=== PATIENT | female | born 1940 | race Caucasian/White ===

== ENCOUNTER 2018-05-21 11:56 | Observation (INO) ==
[2018-05-21 13:14] LABS: Basophils % 0.2 % (0.1-2.0); Eosinophils % 0.5 % (0.1-12.0); Hematocrit 50.7 % (37.0-47.0); Hemoglobin 15.8 g/dL (12.2-16.2); Lymphocytes # 1.4 K/mm3 (0.7-4.5); Lymphocytes % 16.3 % (10-50); Mean Corpuscular HGB Conc 31.1 g/dL (31.8-35.4); Mean Corpuscular Hemoglobin 29.1 pg (27.0-31.2); Mean Corpuscular Volume 93.4 fl (81-99); Mean Platelet Volume 10.2 fl (7.4-10.4); Monocytes # 0.4 K/mm3 (0.1-1.0); Monocytes % 4.1 % (1.7-9.3); Neutrophils # 6.8 K/mm3 (1.8-7.8); Neutrophils % 78.9 % (37.0-80.0); Platelet Count 190 K/mm3 (142-424); Red Blood Count 5.43 M/mm3 (4.20-5.40); Red Cell Distribution Width 14.4 % (11.5-17.5); White Blood Count 8.6 K/mm3 (4.8-10.8)
[2018-05-21 13:32] LABS: Anion Gap 10.6 mEq/L (5-15); Potassium 3.6 mmoL/L (3.5-5.1); Thyroid Stimulating Hormone 3.19 uIU/ml (0.358-3.740)
--- NOTE | 2018-05-21 13:56 | Pharmacy Consult Notes ---
[facility] Pharmacy VTE Monitoring - Patient Demographics Admission date: 05/21/18 Report Date: 05/21/18 Time: 13:55 Allergies/Adverse Reactions: Patient Allergies Penicillins Allergy (Verified 05/21/18 12:43) Height: 1.65 m Weight: 64.127 kg - VTE Risk Labs: VTE Related Lab Results Hgb 15.8 g/dL (12.2-16.2) 05/21/18 12:42 Hct 50.7 % (37.0-47.0) H 05/21/18 12:42 Plt Count 190 K/mm3 (142-424) 05/21/18 12:42 BUN 12 mg/dL (7-18) 05/21/18 12:42 Creatinine 0.75 mg/dL (0.55-1.02) 05/21/18 12:42 Estimated Creat Clear 46 mL/min (50-200) 05/21/18 12:42 Was VTE Risk Assessment Performed: Yes VTE Score: 3 VTE Risk Level: Low Risk - Prophylaxis VTE Prophylaxis Ordered?: Yes Types of VTE Prophylaxis: Pharmacological Pharmacologic Type: Enoxaparin
[2018-05-21 14:16] LABS: Calcium 12.1 mg/dL (8.5-10.1)
[2018-05-22 07:11] LABS: Basophils % 0.2 % (0.1-2.0); Eosinophils % 0.3 % (0.1-12.0); Hematocrit 44.9 % (37.0-47.0); Lymphocytes # 1.9 K/mm3 (0.7-4.5); Lymphocytes % 25.8 % (10-50); Mean Corpuscular HGB Conc 31.7 g/dL (31.8-35.4); Mean Corpuscular Hemoglobin 29.2 pg (27.0-31.2); Mean Corpuscular Volume 92.3 fl (81-99); Mean Platelet Volume 9.6 fl (7.4-10.4); Monocytes # 0.3 K/mm3 (0.1-1.0); Monocytes % 4.5 % (1.7-9.3); Neutrophils % 69.2 % (37.0-80.0); Platelet Count 170 K/mm3 (142-424); Red Blood Count 4.86 M/mm3 (4.20-5.40); Red Cell Distribution Width 14.6 % (11.5-17.5); White Blood Count 7.2 K/mm3 (4.8-10.8)
[2018-05-22 07:18] LABS: Anion Gap 12.2 mEq/L (5-15); Potassium 3.2 mmoL/L (3.5-5.1)
[2018-05-22 07:25] LABS: Hemoglobin 14.3 g/dL (12.2-16.2)
--- NOTE | 2018-05-22 08:13 | Discharge Summary ---
General - General Admission date:: 05/21/18 Discharge date: 05/22/18 HPI HPI: 78-year-old female presented to the office on May 21 with tachycardia. She had been seen in the office 2 days earlier and identified as having atrial fibrillation with rapid ventricular response. Attempt was made to treat her as an outpatient and patient was given extended release metoprolol. Her heart rate remained as high as 160 with uncomfortable palpitations. Patient return to the office and heart rate was irregularly irregular, around 160 bpm. Patient denied chest pain, shortness of breath, lightheadedness or presyncope. Decision was made to admit the patient for treatment of her atrial fibrillation. Hospital Course Hospital Course: Patient was admitted to the hospital and placed on a Cardizem drip which brought her heart rate down to the 80s and 90s. By the evening of the she was transitioned to oral Cardizem with heart rate maintaining below 100 except for when the patient ambulated or became anxious. On the morning of the she was given an additional dose of Cardizem 180 mg along with her extended release metoprolol. Patient was discharged home later in the day. She was given Lovenox as an anticoagulant while hospitalized and will be transitioned to Eliquis at discharge. Patient will follow-up in my office in 2 days Objective Vital signs: Temp Pulse Resp BP Pulse Ox 98.1 F 91 H 15 136/95 H 92 L 05/21/18 19:57 05/22/18 06:00 05/22/18 04:00 05/22/18 06:00 05/22/18 06:00 Narrative: In no distress. HEENT exam is unremarkable. Neck examination was significant for jugular venous pulsations from her atrial fibrillation but once her rate became more controlled these resolved. Neck had no thyromegaly. Lungs are clear to auscultation. Heart has an irregularly irregular rate and rhythm. Patient had a normal neurologic exam Results Labs on day of discharge: Labs from last 24 hours 05/22/18 05/22/18 05/21/18 06:45 06:45 12:42 WBC 7.2 RBC 4.86 Hgb 14.3 Hct 44.9 MCV 92.3 MCH 29.2 MCHC 31.7 L RDW 14.6 Plt Count 170 MPV 9.6 Neut % (Auto) 69.2 Lymph % (Auto) 25.8 [place] % (Auto) 4.5 Eos % (Auto) 0.3 Baso % (Auto) 0.2 Neut # (Auto) 5.0 Lymph # (Auto) 1.9 [place] # (Auto) 0.3 Eos # (Auto) 0.0 Baso # (Auto) 0.0 Sodium 144 142 Potassium 3.2 L 3.6 Chloride 110 H 107 Carbon Dioxide 25 28 Anion Gap 12.2 10.6 BUN 11 12 Creatinine 0.63 0.75 Estimated Creat Clear 46 46 Estimated GFR 91 75 Est GFR ( Amer) 110 D 90 Glucose 115 H 117 H Calcium 11.0 H 12.1 H TSH 3.19 05/21/18 12:42 WBC 8.6 RBC 5.43 H Hgb 15.8 Hct 50.7 H MCV 93.4 MCH 29.1 MCHC 31.1 L RDW 14.4 Plt Count 190 MPV 10.2 Neut % (Auto) 78.9 Lymph % (Auto) 16.3 [place] % (Auto) 4.1 Eos % (Auto) 0.5 Baso % (Auto) 0.2 Neut # (Auto) 6.8 Lymph # (Auto) 1.4 [place] # (Auto) 0.4 Eos # (Auto) 0.0 Baso # (Auto) 0.0 Sodium Potassium Chloride Carbon Dioxide Anion Gap BUN Creatinine Estimated Creat Clear Estimated GFR Est GFR ( Amer) Glucose Calcium TSH DS: Diagnosis - Discharge Diagnosis (1) Atrial fibrillation with rapid ventricular response Status: Acute (2) Essential hypertension Status: Acute Discharge Plan - Patient Discharge Instructions ACTIVITY: Continue current activity DIET: continue same diet - Follow up Plan Disposition: Home, Self-Half-Way Medications: Home Medications Medication Instructions Recorded Confirmed Type Aspirin [Aspirin 81mg EC Tab] 81 mg PO DAILY 05/21/18 05/21/18 History Furosemide [Furosemide 20mg Tab] 20 mg PO DAILY 05/21/18 05/21/18 History Losartan Potassium 50 mg PO DAILY 05/21/18 05/21/18 History Metoprolol Eagle/Hydrochlorothiaz 1 each PO DAILY 05/21/18 05/21/18 History [Metoprolol ER-Hctz 25-12.5 mg] Pravastatin Sodium [Pravachol 20mg 20 mg PO DAILY 05/21/18 05/21/18 History Tablet] Apixaban [Eliquis] 5 mg PO BID #60 tab 05/22/18 Rx dilTIAZem HCl [Cardizem ER 240mg 240 mg PO DAILY #30 cap.er.24h 05/22/18 Rx Capsule] Prescriptions/Medication Reconciliation: New Apixaban [Eliquis] 5 mg PO BID #60 tab dilTIAZem HCl [Cardizem ER 240mg Capsule] 240 mg PO DAILY #30 cap.er.24h Continue Pravastatin Sodium [Pravachol 20mg Tablet] 20 mg PO DAILY Metoprolol Eagle/Hydrochlorothiaz [Metoprolol ER-Hctz 25-12.5 mg] 1 each PO DAILY Aspirin [Aspirin 81mg EC Tab] 81 mg PO DAILY Furosemide [Furosemide 20mg Tab] 20 mg PO DAILY Losartan Potassium 50 mg PO DAILY
== END 2018-05-22 10:06 | disposition home or self-care (01) ==
LOC: 2ND → INTOOBSV 12:05 → OBSVTOIN 12:05
PROVIDERS: ADMIT Family Medicine; ATTEND Family Medicine

== ENCOUNTER → 2018-06-07 09:24 | Outpatient (CLI) | payer MEDICARE, SELFPAY ==
--- NOTE | 2018-06-07 09:29 | CA_ITS ---
PROCEDURE: 2-D M-mode and color Doppler study INDICATIONS FOR THE TEST: Chest pain COPD Heart Murmur Tobacco Smoking Palpitations+ Fatigue Syncope Edema Hypertension+Diabetes Mellitus Rheumatic Fever SOB [place] Obesity Hyperlipidemia Family History HD Additional History AFIB PATIENT INFORMATION HEIGHT: 65 WEIGHT:140 GENDER: Female B/P:136/95 2-D/M-MODE INTERPRETATION: 2-D MEASUREMENTS OBSERVED VALUES IN CMS Right Ventricular Dimension (RVDd) 2.9 Interventricular Septum (Thickness)(IVsd) 0.8 Left Ventricular Internal Dimensions(LVIDd) 5.1 Left Ventricular Posterior Wall (Thickness)(LVPWd) 0.8 Aortic Root 3.6 Aortic Cusp Separation 2.3 Left Atrial Dimensions (LAD) 5.4 2D 1. Left atrium is moderately enlarged, left ventricle is normal size, there is mild qualitative concentric left ventricular hypertrophy, visually estimated ejection fraction approximately 50% with no regional wall motion abnormality. 2. The right atrium is moderately enlarged, right ventricle is mildly enlarged with normal contractility. 3. The aortic valve is minimally thickened and fibrosed. 4. The mitral and tricuspid valve leaflets are minimally thickened. 5. The pulmonic valve is poorly visualized. 6. No significant pericardial effusion noted. DOPPLER INTERROGATION: Doppler interrogation of the aortic, mitral and tricuspid valvular presence of mild mitral and moderate tricuspid regurgitation, calculated right ventricular systolic pressure is 48 mmHg consistent with moderate pulmonary hypertension, diastolic parameters are inconclusive. CONCLUSION: 1. Moderate biatrial enlargement, normal left ventricular size, mild concentric left ventricular hypertrophy, visually estimated ejection fraction 50% with no regional wall motion abnormality. Diastolic parameters are inconclusive. 2. Mildly enlarged right ventricle with normal contractility. 3. Mild mitral and moderate tricuspid regurgitation, calculated right ventricular systolic pressure is 48 mmHg consistent with moderate pulmonary hypertension. 4. No significant pericardial effusion noted.
== END ==
PROVIDERS: PCP Family Medicine; Visit Provider Family Medicine
DX: I48.1 Persistent atrial fibrillation (principal)
CPT/HCPCS: 93306

== ENCOUNTER → 2018-07-21 13:05 | Outpatient (CLI) | payer MEDICARE, SELFPAY | PROVIDERS: PCP Family Medicine; Visit Provider Family Medicine | DX: I48.91 Unspecified atrial fibrillation (principal) | CPT/HCPCS: 93225; 93226 ==

== ENCOUNTER → 2020-02-15 14:04 | Outpatient (CLI) | payer MEDICARE, SELFPAY ==
--- NOTE | 2020-02-15 14:10 | XR_ITS ---
PROCEDURE: XR CHEST 2V CLINICAL HISTORY: PERSISTENT ATRIAL FIBRILLATION COMPARISON: No exams were available for comparison FINDINGS: There is cardiomegaly without failure. Slight increased density is present in the right lung base posteriorly. This may only be related overlying soft tissue attenuation. Cannot exclude infiltrate in the right lung base. There is kyphosis of the upper thoracic spine. No acute bony abnormalities. IMPRESSION: Cardiomegaly with possible right lower lobe infiltrate. Dictated by: Refugio Cook MD 02/15/2020 15:59 Refugio Cook MD in [place] 02/15/2020 15:59
== END ==
PROVIDERS: PCP Family Medicine; Visit Provider Family Medicine
DX: I48.11 Longstanding persistent atrial fibrillation (principal)
CPT/HCPCS: 71046

== ENCOUNTER → 2021-06-04 10:05 | Outpatient (CLI) | payer MEDICARE, SELFPAY ==
--- NOTE | 2021-06-04 10:09 | CT_ITS ---
FINAL REPORT CLINICAL HISTORY: NAUSEA,ABD PAIN FINDINGS: CT ABDOMEN WITHOUT CONTRAST Axial images through the abdomen were performed without contrast. This study was performed with techniques to keep radiation doses as low as reasonably achievable, (ALARA). Individualized dose reduction techniques using automated exposure control or adjustment of mA and/or kV according to the patient's size were employed. ABDOMEN: There is scarring in the lung bases. The gallbladder is absent. The liver is unremarkable. The spleen is normal. There is fatty infiltration of the pancreas. No adrenal mass is identified. The aorta is normal in caliber. There is no significant free fluid or adenopathy. There are a multitude of bilateral nonobstructing renal stones measuring up to 5 mm. There is no hydronephrosis. On the most inferior image is haziness in the fat of the mid pelvis of unclear significance. There is 30? of thoracolumbar scoliosis convex to the left. IMPRESSION: Nonobstructing bilateral renal stones. Incomplete visualization of a sinus in the mid pelvis. Cannot exclude an inflammatory pelvic process. Consider full abdomen and pelvis CT. 30? of thoracolumbar scoliosis. Reviewed, Interpreted and Dictated by James Anna MD Transcribed by Munir Douglas Authenticated by James Anna MD on 06/04/2021 12:14:16 PM [facility]
== END ==
PROVIDERS: PCP Family Medicine; Visit Provider Family Medicine
DX: R10.84 Generalized abdominal pain (principal); R11.0 Nausea
CPT/HCPCS: 74150

== ENCOUNTER → 2021-06-08 10:44 | Outpatient (CLI) | payer MEDICARE, SELFPAY ==
[2021-06-08 12:09] LABS: Blood Urea Nitrogen 10 mg/dl (7-17); Estimated Glomerular Filt Rate 80 ml/min (>60); GFR (African American) 97 ML/MIN (>60)
== END ==
PROVIDERS: Visit Provider Family Medicine
DX: R10.84 Generalized abdominal pain (principal); R11.0 Nausea
CPT/HCPCS: 36415; 82565; 84520

== ENCOUNTER → 2021-06-12 09:26 | Outpatient (CLI) | payer MEDICARE, SELFPAY ==
--- NOTE | 2021-06-12 09:32 | CT_ITS ---
FINAL REPORT TECHNIQUE: Axial CT images of the abdomen and pelvis were obtained before and after the administration of IV contrast. This study was performed with techniques to keep radiation doses as low as reasonably achievable (ALARA). Individualized dose reduction techniques using automated exposure control or adjustment of mA and/or kV according to the patient''s size were employed. CLINICAL HISTORY: NAUSEA,ABD PAIN COMPARISON: And abdomen CT dated June 04, 2021 FINDINGS: Abdomen: There is mild bibasilar scarring. There is atelectasis or scarring in the lateral left lung base. There is cardiomegaly. There is heterogeneous contrast enhancement of the liver that is favored to represent a normal variant. The gallbladder surgically absent.. The spleen is unremarkable. No adrenal masses present. The pancreas has an unremarkable appearance. The kidneys enhance normally. The aorta is normal in caliber. There is no free fluid or adenopathy. No mass or abnormal fluid collection is seen. Precontrast images demonstrate several nonobstructing bilateral renal stones with the largest in the left kidney measuring 5 mm.. Pelvis: The appendix is not well visualized. The urinary bladder is unremarkable. There is widespread colonic diverticulosis. There is foci of extraluminal air in the mid pelvis and inflammatory fat stranding. This is felt to represent acute sigmoid diverticulitis with micro perforation. There is a small amount of pelvic free fluid which is likely reactive. There is no evidence of mass or adenopathy. There is no evidence of bowel obstruction. There are widespread lucencies in the visualized bony skeleton which may represent metastases, myeloma or possibly osteoporosis. IMPRESSION: Findings are consistent with acute sigmoid diverticulitis with microperforation. Widespread lucencies in the visualized bony skeleton, may represent metastases, myeloma or possibly osteoporosis. Bilateral nonobstructing renal stones. Reviewed, Interpreted and Dictated by Behzad Wagoner III, MD Transcribed by Marlene David Authenticated by Behzad Wagoner III, MD on 06/12/2021 10:47:38 AM [facility]
== END ==
PROVIDERS: PCP Family Medicine; Visit Provider Family Medicine
DX: R10.84 Generalized abdominal pain (principal); R11.0 Nausea
CPT/HCPCS: 74178; Q9967

== ENCOUNTER → 2021-06-26 08:31 | Outpatient (CLI) | payer MEDICARE, SELFPAY ==
--- NOTE | 2021-06-26 08:42 | NM_ITS ---
FINAL REPORT CLINICAL HISTORY: BONE LESION FINDINGS: EXISTING RELEVANT IMAGING STUDIES: CT abdomen and pelvis dated June 12, 2021 TECHNIQUE: The patient was injected with 26.9 mCi of technetium 99-[id number]. 3 hour delayed images were obtained. FINDINGS: There is thoracic scoliosis convex to the right. There is thoracolumbar scoliosis convex to the left. There is normal distribution of radiopharmaceutical. IMPRESSION: No findings to indicate metastatic bone disease. Bony structures on the recent CT head abnormal appearing small lucencies. Bone scan may be normal in the setting of myeloma. Correlation with lab values and and possible bone marrow biopsy may be of value. Reviewed, Interpreted and Dictated by James Anna MD Transcribed by Munir Douglas Authenticated by James Anna MD on 06/26/2021 02:18:14 PM [facility]
== END ==
PROVIDERS: PCP Family Medicine; Visit Provider Family Medicine
DX: M89.9 Disorder of bone, unspecified (principal); D48.0 Neoplasm of uncertain behavior of bone and articular cartilage
CPT/HCPCS: 78306; A9503

== ENCOUNTER 2023-10-21 17:47 | Emergency (ER) | payer MEDICARE, SELFPAY ==
[2023-10-21 17:46] VITALS: BP 131/67; PULSE 101; O2SAT 92
[2023-10-21 17:47] VITALS: BP 137/67; PULSE 126; RESP 22; TEMP 39.4; O2SAT 91; BMI 27.4
--- NOTE | 2023-10-21 17:51 | ECG_ITS ---
APPROVED REPORT Exam: Resting ECG HR:117 bpm ECG Measurements Heart Rate 117 AXES QRSd 94 QRS 64 QT 225 T 267 QTc 294 Conclusion ATRIAL FIBRILLATION WITH RAPID VENTRICULAR RESPONSE WITH ABERRANT CONDUCTION OR VENTRICULAR PREMATURE COMPLEXES POSSIBLE RIGHT VENTRICULAR CONDUCTION DELAY [RSR (QR) IN V1/V2] NONSPECIFIC ST & T-WAVE ABNORMALITY ABNORMAL ECG Electronically signed by : ZACH BALDWIN, 10/21/2023 22:22:10
--- NOTE | 2023-10-21 17:56 | CT_ITS ---
PROCEDURE INFORMATION: Exam: CT Head Without Contrast Exam date and time: 10/21/2023 6:18 PM Age: 83 years old Clinical indication: Altered mental status/memory loss; Additional info: AMS TECHNIQUE: Imaging protocol: Computed tomography of the head without contrast. Radiation optimization: All CT scans at this facility use at least one of these dose optimization techniques: automated exposure control; mA and/or kV adjustment per patient size (includes targeted exams where dose is matched to clinical indication); or iterative reconstruction. COMPARISON: NM BONE SCAN WHOLE BODY 06/26/2021 12:33 PM FINDINGS: Brain: There is moderate diffuse cerebral volume loss present. Multiple subcortical and deep hypoattenuating white matter foci are present, likely related to small vessel senescent changes and can also be seen with prior infectious / inflammatory insult, or prior traumatic events. No hyperattenuating foci are identified to suggest acute intracranial hemorrhage. Cerebral ventricles: No ventriculomegaly. Paranasal sinuses: Visualized sinuses are unremarkable. No fluid levels. Mastoid air cells: Visualized mastoid air cells are well aerated. Bones: Unremarkable. No acute fracture. Soft tissues: Unremarkable. IMPRESSION: 1. Multiple subcortical and deep hypoattenuating white matter foci are present, likely related to small vessel senescent changes and can also be seen with prior infectious / inflammatory insult, or prior traumatic events. 2. No hyperattenuating foci are identified to suggest acute intracranial hemorrhage.
[2023-10-21 18:01] VITALS: BP 123/68; PULSE 107; RESP 21; O2SAT 91
--- NOTE | 2023-10-21 18:09 | XR_ITS ---
PROCEDURE INFORMATION: Exam: XR Chest Exam date and time: 10/21/2023 6:18 PM Age: 83 years old Clinical indication: Fever; Additional info: Fever, AMS TECHNIQUE: Imaging protocol: Radiologic exam of the chest. Views: 1 view. COMPARISON: CR XR CHEST 2V 02/15/2020 2:17 PM FINDINGS: Lungs: Left basilar opacities partially silhouette the diaphragm are favored to represent combination of atelectasis/pleural effusion/consolidation. Pleural spaces: See Lungs finding. Heart/Mediastinum: Cardiomegaly unchanged from prior exam Bones/joints: Unremarkable. IMPRESSION: Left basilar opacities partially silhouette the diaphragm are favored to represent combination of atelectasis/pleural effusion/consolidation.
[2023-10-21] MEDS: ACETAMINOPHEN 1,000MG/100ML VIAL 1000 MG IV (18:10)
--- NOTE | 2023-10-21 18:12 | PC.NURSE ---
RT notified of VBG order
--- NOTE | 2023-10-21 18:12 | PC.NURSE ---
Pt gone to RAD via stretcher
--- NOTE | 2023-10-21 18:16 | ED_ITS ---
Discharge Plan Disposition Patient Disposition: Xfer Short-Term Hosp Prescriptions Prescriptions: No Action pravastatin 20 MG tablet 20 mg PO DAILY metoprolol rollins-hydrochlorothiaz 1 EACH tablet extended release 24 hr 1 ea PO DAILY losartan 50 MG Tablet 50 mg PO DAILY aspirin 81 MG Tablet.Dr 81 mg PO DAILY furosemide 20 MG tablet 20 mg PO NEEDED PRN (Reason: Fuild ) diltiazem HCl 240 MG capsule,extended release 24hr 240 mg PO DAILY ferrous sulfate [FeroSul] 325 mg (65 mg iron) tablet 325 mg PO DAILY Patient Comments: TAKE ONE TABLET BY MOUTH DAILY WITH BREAKFAST apixaban 5 MG tablet 5 mg PO BID Referrals Follow up/Referrals: Petey Hernandez MD [Primary Care Provider] - See instructions Clinical Impressions Clinical Impression: Atrial fibrillation with rapid ventricular response, Sepsis, Thrombocytopenia, Acute hypoxemic respiratory failure, Hypomagnesemia, Hypokalemia, Acute UTI, Ureterolithiasis Discharge ED Provider: Maria Eugenia Martell General Adult HPI General Chief complaint: Weakness Stated complaint: WEAKNES Time Seen by Provider: 10/21/23 17:54 Mode of Arrival: EMS Source of Information: Patient and EMS Limitations: Altered Mental Status Description of Symptoms (Recalled from ER Triage Doc. by RN): EMS reports pt's son called due to pt being weak and decreased PO intake for 2-3 days. Pt has no complaints at this time but is febrile and in Afib w/ RVR on monitor. Pt is only alert to name and place but states the year is 1923. History of Present Illness HPI narrative: This patient is an 83-year-old female with history of atrial fibrillation reportedly on diltiazem and Eliquis, CHF on Lasix, hypertension, and hyperlipidemia presenting to the emergency department for evaluation with concern for generalized weakness and decreased oral intake for the last 2 to 3 days. Patient has generally been unwell. According to EMS, they arrived on scene and the patient was noted to be tachycardic with atrial fibrillation with a ventricular rate in the 120s to 130s. They note she was otherwise stable. Patient denies any specific concerns or complaints at this time, but history is limited given history of dementia. She denies any pain anywhere. She is alert, conversational, and very pleasant. She does arrive febrile, tachycardic, and borderline hypoxic with O2 saturation in the low 90s. Related Data Home Medications Medication Instructions Recorded Confirmed aspirin 81 mg tablet,delayed 81 mg PO DAILY heart health 05/21/18 05/21/18 release furosemide 20 mg tablet 20 mg PO NEEDED PRN Fuild 05/21/18 10/21/23 losartan 50 mg tablet 50 mg PO DAILY htn 05/21/18 05/21/18 metoprolol succ 25 1 ea PO DAILY htn 05/21/18 10/21/23 mg-hydrochlorothiazide 12.5 mg tablet,ext.rel 24 hr pravastatin 20 mg tablet 20 mg PO DAILY High cholesterol 05/21/18 10/21/23 apixaban 5 mg tablet 5 mg PO BID Afib 10/21/23 10/21/23 diltiazem HCl 240 mg 240 mg PO DAILY Afib 10/21/23 10/21/23 capsule,extended release 24 hr ferrous sulfate 325 mg (65 mg 325 mg PO DAILY 10/21/23 10/21/23 iron) tablet (FeroSul) Allergies Allergy/AdvReac Type Severity Reaction Status Date / Time Penicillins Allergy Verified 05/21/18 12:43 [facility] Disclaimer: The information contained in this section may have been updated after the patient was seen, as this information can be updated by other users. Social History Smoking Status: Unknown if ever smoked alcohol intake: never current occupational status: retired Travel in the last 8 weeks: None ROS Obtained: Yes All systems reviewed & no additional complaints except as documented Physical Exam General General appearance: alert and in no apparent distress Head Head exam: atraumatic and normocephalic Eye Eye exam: Present normal appearance, PERRL and EOMI ENT ENT exam: Present normal exam, normal oropharynx, mucous membranes moist and normal external ear exam Neck Neck exam: Present normal inspection, full ROM and trachea midline; Absent tenderness Chest Chest inspection: Present normal inspection and symmetric chest wall rise; Absent tenderness Respiratory Respiratory exam: Present normal lung sounds bilaterally; Absent respiratory distress, wheezes, stridor or accessory muscle use Cardiovascular Cardiovascular exam: Present tachycardia and irregular rhythm Abdominal Exam Abdominal exam: Present soft; Absent distention, tenderness or guarding Extremities Exam Extremities exam: Present full ROM, normal capillary refill and edema (1+ bilateral lower extremity edema); Absent tenderness Back Exam Back exam: Present normal inspection and full ROM; Absent tenderness Neurological Exam Neurological exam: Present alert, CN II-XII intact, normal gait and other (Generally weak without focal deficit); Absent oriented X3 or motor sensory deficit Psychiatric Psychiatric exam: Present normal affect and normal mood Skin Skin exam: Present warm and dry Medical Decision Making Medical Records Medical records reviewed: Yes I reviewed the patient's medical records. Dontae Inquiry Pt receiving controlled substance: No Vital Signs: 10/21/23 17:46 10/21/23 17:47 10/21/23 18:01 Temperature 103.0 F H Temperature Source Oral Pulse Rate 101 H 107 H Pulse Rate [Apical] 126 H Respiratory Rate 22 21 Blood Pressure 131/67 123/68 Blood Pressure [Right Arm] 137/67 Blood Pressure Mean [Right Arm] 90 Blood Pressure Source [Right Arm] Automatic Cuff Blood Pressure Position [Right Arm] Supine 02 Sat by Pulse Oximetry 92 L 91 L 91 L Oxygen Delivery Method Nasal Cannula Nasal Cannula Nasal Cannula Oxygen Flow Rate (LPM) 2 2 2 10/21/23 18:30 Temperature Temperature Source Pulse Rate 100 H Pulse Rate [Apical] Respiratory Rate 27 H Blood Pressure 141/70 H Blood Pressure [Right Arm] Blood Pressure Mean [Right Arm] Blood Pressure Source [Right Arm] Blood Pressure Position [Right Arm] 02 Sat by Pulse Oximetry 94 L Oxygen Delivery Method Nasal Cannula Oxygen Flow Rate (LPM) 2 Lab Data Lab results reviewed: Yes I reviewed the patient's lab results. Lab Results 10/21/23 17:48: WBC 8.8, RBC 5.22, Hgb 12.9, Hct 42.8, MCV 82.0, MCH 24.7 L, M CHC 30.1 L, RDW 21.6 H, Plt Count 23 L*, MPV 8.4, Neut % (Auto) 95.1 H, Lymph % (Auto) 3.5 L, [place] % (Auto) 0.7 L, Eos % (Auto) 0.3, Baso % (Auto) 0.4, Neut # (Auto) 8.3 H, Lymph # (Auto) 0.3 L, [place] # (Auto) 0.1, Eos # (Auto) 0.0, Baso # (Auto) 0.0, Total Counted 100, Neutrophils % (Manual) 92 H, Band Neutrophils % 6.0, Lymphocytes % (Manual) 2 L, Platelet Estimate Marked decrease, Hypochromasia 1+, Anisocytosis 2+, Microcytosis 1+, Target Cells 1+, Tear Drop Cells 1+, Acanthocytes (Spur) 1+, PT 13.0 H, INR 1.22 H, APTT 26.8, D-Dimer 1.57 H, Sodium 137, Potassium 3.0 L, Chloride 98, Carbon Dioxide 23, Anion Gap 19.0 H , BUN 18 H, Creatinine 0.90, Estimated Creat Clear 48, Estimated GFR 60, Est GFR ( Amer) 72, Glucose 153 H, Calcium 10.9 H, Magnesium 1.3 L, Total Bilirubin 1.2, AST 45 H, ALT 43, Alkaline Phosphatase 213 H, Troponin I < 0.01, C-Reactive Protein 184.5 H, NT-Pro-B Natriuret Pep 3800 H, Total Protein 6.9, Albumin 3.7, Globulin 3.2, Albumin/Globulin Ratio 1.2, Procalcitonin 0.240, TSH 1.08, Thyroxine (T4) 8.3 10/21/23 18:12: VBG pH 7.42 H, VBG pCO2 34.5 L, VBG pO2 69.8 H, VBG HCO3 21.9 L, VBG Total CO2 22.9 L, VBG O2 Saturation 94.4 H, VBG Base Excess -2.6 L, VBG Lactic Acid 6.7 H 10/21/23 18:13: SARS-CoV-2 (PCR) Not detected, Influenza A Untype (PCR) Not detected, Influenza Type B (PCR) Not detected 10/21/23 19:33: Urine Color Yellow, Urine Appearance Clear, Urine pH 6.5, Ur Specific [place] 1.020, Urine Protein 2+, Urine Glucose (UA) Negative, Urine Ketones Negative, Urine Blood 3+, Urine Nitrate Negative, Urine Bilirubin Negative, Urine Urobilinogen 1.0, Ur Leukocyte Esterase 3+ A, Urine RBC Tntc, Urine WBC 20-50, Ur Squamous Epith Cells 3-5, Urine Bacteria 1+ 10/21/23 20:51: Troponin I 0.07 H 10/21/23 17:48 10/21/23 17:48 Orders (Tests/Meds): ED MEDICATIONS Generic Name Dose Route Start Last Admin Trade Name Freq PRN Reason Stop Dose Admin Lactated Ringer's 1,000 mls @ 25 mls/hr 10/21/23 20:45 10/21/23 20:48 Lactated Ringer's 1000 Ml Bag IV 11/20/23 20:44 25 mls/hr .Q25H LILA Administration Miscellaneous 1 each 10/21/23 18:30 10/21/23 18:57 Vancomycin Consult Request NOTAPPLIC 11/20/23 18:29 1 each CONSULT PHARMACY LILA Administration Discontinued Medications Generic Name Dose Route Start Last Admin Trade Name Omar PRN Reason Stop Dose Admin Acetaminophen 1,000 mg 10/21/23 18:07 10/21/23 18:10 Acetaminophen 1,000mg/100ml Vial IV 10/21/23 18:08 1,000 mg ONCE ONE Administration Lactated Ringer's 1,000 mls @ 999 mls/hr 10/21/23 18:21 10/21/23 18:24 Lactated Ringer's 1000 Ml Bag IV 10/21/23 19:21 999 mls/hr .Q1H1M ONE Administration Cefepime HCl 1 gm/ Sodium 50 mls @ 100 mls/hr 10/21/23 18:21 10/21/23 19:37 Chloride IV 10/21/23 18:22 100 mls/hr ONCE ONE Administration Metronidazole 500 mg in 100 mls @ 100 mls/hr 10/21/23 18:21 10/21/23 18:24 Flagyl 500mg/100ml Ivpb IV 10/21/23 19:20 100 mls/hr ONCE ONE Administration Vancomycin/PEG/NADA/Lysine/Water 1.25 gm in 250 mls @ 125 mls/hr 10/21/23 18:30 10/21/23 19:37 Vancomycin 1.25gm/250ml (Peg) Premix IV 10/21/23 20:29 125 mls/hr ONCE ONE Administration Potassium Chloride/Water 100 mls @ 50 mls/hr 10/21/23 18:46 10/21/23 20:47 Potassium Chloride 20meq/100ml Ivpb IV 10/21/23 20:45 50 mls/hr ONCE ONE Administration Magnesium Sulfate 2 gm in 50 mls @ 50 mls/hr 10/21/23 18:46 10/21/23 20:48 Magnesium Sulfate 2gm/50ml Premix IV 10/21/23 19:45 50 mls/hr ONCE ONE Administration Iopamidol 70 ml 10/21/23 20:11 10/21/23 20:13 Iopamidol-370 (76%);100ml Bottle IV 10/21/23 20:12 70 ml ONCE ONE Administration Sodium Chloride 10 ml 10/21/23 20:11 10/21/23 20:13 Sodium Chloride 0.9% 10ml Syr (Rad Only) IV 10/21/23 20:12 10 ml ONCE ONE Administration Sodium Chloride 50 ml 10/21/23 20:11 10/21/23 20:13 0.9 % Sodium Chloride 50 Ml Vial IV 10/21/23 20:12 50 ml ONCE ONE Administration ORDERS Category Date Time Status CT abdomen pelvis w con Stat Cat Scan 10/21/23 19:[address] angio chest PE protocol Stat Cat Scan 10/21/23 19:[address] head/brain wo con Stat Cat Scan 10/21/23 17:56 Completed XR chest portable Stat Exams 10/21/23 18:09 Completed Activated Partial Thrombo Time Stat Lab 10/21/23 17:48 Completed C-Reactive Protein Stat Lab 10/21/23 17:48 Completed Complete Blood Count Auto Diff Stat Lab 10/21/23 17:48 Completed Comprehensive Metabolic Panel Stat Lab 10/21/23 17:48 Completed D-Dimer Stat Lab 10/21/23 17:48 Completed Lactic Acid Stat Lab 10/21/23 21:43 Ordered Magnesium Stat Lab 10/21/23 17:48 Completed NT Pro Brain Natriuretic Pep. Stat Lab 10/21/23 17:48 Completed Procalcitonin Stat Lab 10/21/23 17:48 Completed Prothrombin Time INR Stat Lab 10/21/23 17:48 Completed Rapid PCR Covid and Flu A/B Stat Lab 10/21/23 18:13 Completed T4 (Thyroxine) Stat Lab 10/21/23 17:48 Completed Thyroid Stimulating Hormone Stat Lab 10/21/23 17:48 Completed Troponin I Q3H Lab 10/21/23 20:51 Completed Troponin I Q3H Lab 10/22/23 00:00 Ordered Troponin I Stat Lab 10/21/23 17:48 Completed Urinalysis and Microscopic Stat Lab 10/21/23 19:33 Completed Blood Culture Stat Micro 10/21/23 17:55 Received Urine Culture Stat Micro 10/21/23 19:33 Received VBG [Venous Blood Gas] Stat RT 10/21/23 18:12 Completed ECG Data Tracing #1: I reviewed this ECG and interpreted as documented below: Atrial fibrillation with a ventricular rate of [address] changes concerning for ischemia. ECG initial impression date: 10/21/23 ECG initial impression time: 17:52 Medical Decision Narrative: In summary, this patient is a 83-year-old female presenting to the Emergency Department for evaluation of generalized weakness and poor appetite for 2 to 3 days. She arrives febrile, tachycardic, in atrial fibrillation with RVR. She also has borderline hypoxic with lower extremity edema. Differential diagnoses considered include but are not limited to sepsis, pneumonia, urinary tract infection, viral syndrome, dehydration, CHF exacerbation. Ruling out the most morbid conditions drove assessment. It should be noted patient's history includes atrial fibrillation and CHF which are not at goal therapy. This complicates all aspects of care by increasing patient's risk for morbidity. I reviewed patient's past medical records and noted previous PCP evaluations for persistent atrial fibrillation. She has a prior admission from 2018 for atrial fibrillation with RVR.. On exam, the patient is febrile, tachycardic, borderline hypoxic, and has lower extremity edema. She is alert, conversational, and at her baseline with her history of dementia. She denies any concerns or complaints. Workup included broad lab evaluation including infectious, cardiac, and metabolic workup. She was given a 1 L bolus of IV fluids, but she was not given a sepsis bolus of IV fluids because she has signs of volume overload on exam with lower extremity edema. She has CHF for which she is chronically on Lasix. I reviewed last echocardiogram and noted in 2019 her EF was approximately 50%. Given that she meets SIRS criteria, she was also started on broad-spectrum antibiotics including IV vancomycin, cefepime, and Flagyl. She was also given IV Tylenol. CT scan of the head, chest, abdomen, and pelvis as well as chest x-ray were obtained in addition to lab evaluation. I independently interpreted CT scan prior to the radiologist read and noted a right obstructive ureteral stone (17mm) as well as evidence of volume overload with pulmonary edema. This again supports not given the patient a full sepsis bolus despite her lactic acid that is significantly elevated. Please see their read for final interpretation. Labs were obtained that demonstrated elevated lactic acid of greater than 6 as well as elevated BNP. She also has hypomagnesemia and hypokalemia for which IV replacement ordered.. On reassessment, patient had good improvement in her heart rate after administration of IV fluids, antibiotics, magnesium, and potassium. She went from 120s to 130s to rate in the low 100s. She has not yet had her nighttime diltiazem or metoprolol which she takes at home. I considered giving these, however I feel that her heart rate is likely compensatory in the setting of severe sepsis with an obstructive right ureteral stone. I ultimately feel that she would benefit from transfer to higher level of care for further evaluation and management. Conversations were initiated with [facility] per the family's request. In the meantime, second troponin became elevated at 0.07, which I feel is likely related to her atrial fibrillation and sepsis. No acute STEMI. I had an interactive discussion with Dr. Reis at [facility] via their transfer center who advised that he would be happy to take care of the patient there. I had an interactive discussion with Dr. Gould the hospitalist who advised second lactic acid but they would be happy to care for the patient there. Transfer center advised that they would call back with a bed. Ultimately, the patient was transported there in stable condition for further evaluation and management by EMS. Critical Care Critical Care Time Critical Care Time: Yes Attestation: On 10/21/23, the high probability of a clinically significant, sudden or life threatening deterioration of the following system(s) required my full and direct attention, intervention and personal management. The time I documented below is in addition to time spent performing reported procedures but includes the following listed in this critical care notation. Total Time Total Critical Care Time: 45
[2023-10-21 18:17] LABS: VBG Base Excess -2.6 mmol/L (-2.4-2.3); VBG HCO3 21.9 mmol/L (23-30); VBG Oxygen Saturation 94.4 % (50-70); VBG PCO2 34.5 mmol/L (35-51); VBG PH 7.42 mmol/L (7.31-7.41); VBG PO2 69.8 mmol/L (28-40); VBG Total CO2 22.9 mmol/L (23-27)
[2023-10-21 18:20] LABS: Activated Partial Thrombo Time 26.8 seconds (22.8-30.6); INR 1.22 (0.9-1.1)
[2023-10-21 18:20] LABS: Coronavirus 19, PCR Not Detected (NotDetected); Influenza A, PCR Not Detected (NotDetected); Influenza B, PCR Not Detected (NotDetected)
--- NOTE | 2023-10-21 18:22 | PC.NURSE ---
RESP CALLED FOR CRITICAL LACTIC OF 6.7 MD NOTIFIED
[2023-10-21 18:24] LABS: Lactate Venous 6.7 mmol/L (0.4-2.0)
[2023-10-21] MEDS: LACTATED RINGERS 1000ML 1,000 ML 999 ML IV (18:24)
[2023-10-21] MEDS: METRONIDAZ/SOD CHL 500 MG/100 ML PIGGYBACK 100 MG IV (18:24)
--- NOTE | 2023-10-21 18:25 | PC.NURSE ---
SEPSIS BOLUS NOT GIVEN DUE TO HX OF CHF AND B LEG SWELLING PER DR BALDWIN
[2023-10-21 18:30] VITALS: BP 141/70; PULSE 100; RESP 27; O2SAT 94
[2023-10-21 18:39] LABS: Alanine Aminotransferase 43 U/L (12-78); Albumin Level 3.7 g/dl (3.5-5.0); Albumin/Globulin Ratio 1.2 (1.1-1.8); Alkaline Phosphatase 213 U/L (38-126); Aspartate Amino Transferase 45 U/L (14-36); Bilirubin,Total 1.2 mg/dl (0.2-1.3); Blood Urea Nitrogen 18 mg/dl (7-17); Calcium 10.9 mg/dl (8.4-10.2); Carbon Dioxide 23 mmol/L (22.0-30.0); Chloride 98 mmol/L (98-107); Creatinine Clearance Estimated 48 mL/min (50-200); Estimated Glomerular Filt Rate 60 ml/min (>60); GFR (African American) 72 ML/MIN (>60); Globulin 3.2 g/dL (1.3-3.2); Glucose 153 mg/dl (74-100); Magnesium 1.3 mg/dl (1.6-2.3); Sodium 137 mmol/L (136-145); Total Protein,Serum 6.9 g/dl (6.3-8.2)
[2023-10-21 18:54] LABS: Basophils % 0.4 % (0.1-2.0); Eosinophils % 0.3 % (0.1-12.0); Hematocrit 42.8 % (37.0-47.0); Hemoglobin 12.9 g/dL (12.2-16.2); Lymphocytes # 0.3 K/mm3 (0.7-4.5); Lymphocytes % 3.5 % (10-50); Mean Corpuscular HGB Conc 30.1 g/dL (31.8-35.4); Mean Corpuscular Hemoglobin 24.7 pg (27.0-31.2); Mean Platelet Volume 8.4 fl (7.4-10.4); Monocytes # 0.1 K/mm3 (0.1-1.0); Monocytes % 0.7 % (1.7-9.3); Neutrophils # 8.3 K/mm3 (1.8-7.8); Neutrophils % 95.1 % (37.0-80.0); Red Blood Count 5.22 M/mm3 (4.20-5.40); Red Cell Distribution Width 21.6 % (11.5-17.5); White Blood Count 8.8 K/mm3 (4.8-10.8)
[2023-10-21] MEDS: VANCOMYCIN CONSULT REQUEST 1 EACH NOTAPPLIC (18:57)
--- NOTE | 2023-10-21 18:57 | PC.NURSE ---
Soila in LAB called to report a platelet count of 23. Repeated and confirmed. Dr. Martell notified
[2023-10-21 19:01] LABS: D-Dimer 1.57 ug/mL (0.0-0.5)
[2023-10-21 19:02] LABS: C-Reactive Protein 184.5 mg/L (0-4)
[2023-10-21 19:05] LABS: Platelet Count 23 K/mm3 (142-424)
[2023-10-21 19:06] LABS: MANUAL DIFFERENTIAL MANUAL DIFFERENTIAL (MANUAL DIFF)
--- NOTE | 2023-10-21 19:09 | CT_ITS ---
PROCEDURE INFORMATION: Exam: CT Abdomen And Pelvis With Contrast Exam date and time: 10/21/2023 7:56 PM Age: 83 years old Clinical indication: Other: Sepsis; Additional info: Sepsis unknown origin TECHNIQUE: Imaging protocol: Computed tomography of the abdomen and pelvis with contrast. Radiation optimization: All CT scans at this facility use at least one of these dose optimization techniques: automated exposure control; mA and/or kV adjustment per patient size (includes targeted exams where dose is matched to clinical indication); or iterative reconstruction. Contrast material: ISOVUE; Contrast volume: 70 ml; Contrast route: IV; COMPARISON: CT ABDOMEN PELVIS WO/W CON 06/12/2021 10:00 AM FINDINGS: Lungs: Dependent bilateral lung base opacities favor atelectasis. Heart: Cardiomegaly unchanged from prior exam. Liver: Mild periportal edema likely related to fluid resuscitation. Gallbladder and bile ducts: There are surgical clips within the gallbladder fossa. Moderate hepatic steatosis with sparing adjacent to the falciform ligament and gallbladder fossa resulting in hyperattenuation. Pancreas: Normal. No ductal dilation. Spleen: Normal. No splenomegaly. Adrenal glands: Normal. No mass. Kidneys and ureters: Obstructive ureterolith at the right ureteropelvic junction measuring 17 mm in diameter resulting in moderate right hydronephrosis, and stranding of the right ureter, which could represent early infectious uropathy. Nonobstructive left sided kidney stone measures 9 mm. Multiple Bosniak 1 renal cystic lesions defined as homogeneous and fluid density (-9 to 20 HU), no septations or calcifications, having randolph smooth and thin. Largest cyst measures 20 mm. No follow-up recommended. Stomach and bowel: Diverticula are scattered throughout the colon without inflammatory changes. Appendix: No evidence of appendicitis. Intraperitoneal space: Unremarkable. No free air. No significant fluid collection. Vasculature: Mild calcific atherosclerotic disease is scattered throughout the abdominal aorta without aneurysmal dilatation. Lymph nodes: Unremarkable. No enlarged lymph nodes. Urinary bladder: Navarro catheter terminates within the bladder. Reproductive: Unremarkable as visualized. Bones/joints: Diffuse sclerotic appearance of the osseous structures which could be related to metabolic process versus neoplastic process. Soft tissues: Normal. IMPRESSION: Obstructive ureterolith at the right ureteropelvic junction measuring 17 mm in diameter resulting in moderate right hydronephrosis, and stranding of the right ureter, which could represent early infectious uropathy.
--- NOTE | 2023-10-21 19:09 | CT_ITS ---
PROCEDURE INFORMATION: Exam: CTA Chest With Contrast Exam date and time: 10/21/2023 7:56 PM Age: 83 years old Clinical indication: Tachypnea; Additional info: Resp failure, elevated d dimer TECHNIQUE: Imaging protocol: Computed tomographic angiography of the chest with contrast. Exam focused on the arteries. 3D rendering (Not supervised by radiologist): MIP and/or 3D reconstructed images were created by the technologist. Radiation optimization: All CT scans at this facility use at least one of these dose optimization techniques: automated exposure control; mA and/or kV adjustment per patient size (includes targeted exams where dose is matched to clinical indication); or iterative reconstruction. Contrast material: ISOVUE; Contrast volume: 70 ml; Contrast route: INTRAVENOUS (IV); COMPARISON: CR XR CHEST PORTABLE 10/21/2023 6:18 PM FINDINGS: Pulmonary arteries: No CT angiography evidence of pulmonary embolism. Aorta: Unremarkable. No aortic aneurysm. No aortic dissection. Lungs: Dependent bilateral lung base opacities favor atelectasis. Prominent interstitial markings of the lung bases with centrilobular airspace opacities suggest mild pulmonary edema. Pleural spaces: Low volume left pulmonary effusion. Heart: Cardiomegaly unchanged from prior exam. Lymph nodes: Unremarkable. No enlarged lymph nodes. Kidneys and ureters: Moderate right hydronephrosis involving superior pole of the right kidney. Right renal Bosniak 1 cystic lesion that is homogeneous and fluid density (-9-20 HU), no septations or calcifications, having randolph smooth and thin. Measurement is 22 mm. No follow-up recommended. Bones/joints: Moderate loss of intervertebral disc space with degenerative changes at thoracic spine with exaggerated kyphotic curvature Soft tissues: Unremarkable. IMPRESSION: 1. No CT angiography evidence of pulmonary embolism. 2. Prominent interstitial markings of the lung bases with centrilobular airspace opacities suggest mild pulmonary edema. 3. Moderate right hydronephrosis involving superior pole of the right kidney. COMMENTS: Consistent with the [employer]'s Incidental Findings Committee white paper (J Am Hailee Radiol 2018): Any incidental renal lesion less than 1 cm or classified as too small to characterize, or any incidental cystic renal lesion characterized as simple-appearing, is likely benign. No follow-up imaging is recommended for these lesions per consensus recommendations based on imaging criteria.
[2023-10-21 19:13] LABS: Lymphocytes % 2 % (10-50); NT Pro Brain Natriuretic Pep. 3800 pg/mL (0-450); Neutrophils % 92 % (42-76); Total Cells Counted 100
[2023-10-21 19:14] LABS: Anisocytosis 2+; Hypochromasia 1+; Microcytosis 1+; Platelet Estimate Marked Decrease; Tear Drop Cells 1+; Troponin I < 0.01 ng/ml (0.00-0.034)
[2023-10-21 19:15] LABS: Acanthocytes 1+; Target Cells 1+
[2023-10-21 19:21] LABS: T4 (Thyroxine) 8.3 ug/dl (5.53-11.0)
[2023-10-21 19:35] LABS: Thyroid Stimulating Hormone 1.08 uIU/mL (0.465-4.68)
[2023-10-21 19:36] LABS: Microscopic, Urine URINE MICROSCOPIC (MICROSCOPIC)
[2023-10-21] MEDS: VANCOMYCIN/WATER FOR INJ (PEG) 1.25 GM/250 ML PIGGYBACK IV (19:37)
[2023-10-21] MEDS: CEFEPIME HCL 1 GM in 0.9 % SODIUM CHLORIDE 50 ML IV (19:37)
[2023-10-21 19:51] LABS: Appearance,Urine CLEAR (Clear); Bilirubin,Urine Negative (Negative); Blood, Urine 3+ (Negative); Color,Urine YELLOW (Yellow); Glucose,Urine (UA) Negative (Negative); Ketones,Urine Negative (Negative); Leukocyte Esterase,Urine 3+ (Negative); Nitrate,Urine Negative (Negative); PH,Urine 6.5 (5.0-8.5); Protein,Urine 2+ (Negative)
[2023-10-21 20:02] LABS: Bacteria,Urine 1+ /lpf; RBC,Urine TNTC #/hpf (0-3); WBC,Urine 20-50 #/hpf (0-3)
[2023-10-21] MEDS: 0.9 % SODIUM CHLORIDE 50 ML VIAL IV (20:13)
[2023-10-21] MEDS: IOPAMIDOL-370 (76%);100ML BOTTLE 70 ML IV (20:13)
[2023-10-21] MEDS: SODIUM CHLORIDE 0.9% 10ML SYR (RAD ONLY) 10 ML IV (20:13)
[2023-10-21] MEDS: KCl 20mEq/100ml 100 ML 50 MEQ IV (20:47)
[2023-10-21] MEDS: MAGNESIUM SULFATE IN WATER 2 GM/50 ML PIGGYBACK IV (20:48)
[2023-10-21] MEDS: LACTATED RINGERS 1000ML 1,000 ML 25 ML IV (20:48)
--- NOTE | 2023-10-21 20:56 | PC.NURSE ---
Called [facility] about possible transfer of the pt per request of Dr Martell. Waiting for a return call. CR
[2023-10-21 21:23] LABS: Troponin I 0.07 ng/ml (0.00-0.034)
[2023-10-21 22:00] LABS: Lactic Acid 1.4 mmol/L (0.7-2.1)
[2023-10-21 22:05] LABS: Reflex Lactic Add Lactic Reflex
--- NOTE | 2023-10-22 02:35 | PC.NURSE ---
Yohannes called [facility] about pt transfer to [facility]. Spoke with Jalen. States they will be up in a little bit.
--- NOTE | 2023-10-22 02:40 | PC.NURSE ---
Report called CHU Braga at [facility]. Patient will be transferring per EMS to at [facility].
[2023-10-22 02:59] VITALS: BP 107/70; PULSE 98; RESP 18; TEMP 36.9; O2SAT 94
[2023-10-22 03:13] LABS: Troponin I 0.07 ng/ml (0.00-0.034)
--- NOTE | 2023-10-22 05:24 | PC.NURSE ---
pt transfer to [facility]. [facility] called and spoke to Omi Marquez to notified of gram negative blood cultures.
== END 2023-10-22 03:01 | disposition short-term general hospital (02) ==
PROVIDERS: Emergency Provider Emergency Medicine; PCP Family Medicine
DX: A41.89 Other specified sepsis (principal); B96.29 Other Escherichia coli [E. coli] as the cause of diseases classified elsewhere; J96.01 Acute respiratory failure with hypoxia; I48.91 Unspecified atrial fibrillation; N13.0 Hydronephrosis with ureteropelvic junction obstruction; N39.0 Urinary tract infection, site not specified; E87.6 Hypokalemia; E83.42 Hypomagnesemia; D69.6 Thrombocytopenia, unspecified; I11.0 Hypertensive heart disease with heart failure; I50.9 Heart failure, unspecified; E78.5 Hyperlipidemia, unspecified; Z79.01 Long term (current) use of anticoagulants
CPT/HCPCS: 36415; 70450; 71045; 71275; 74177; 80053; 81001; 82803; 83605; 83735; 83880; 84145; 84436; 84443; 84484; 85007; 85025; 85378; 85610; 85730; 86140; 87040; 87077; 87086; 87088; 87186; 87636; 93005; 96365; 96366; 96375; 99291; J0131; J0692; J3475; Q9967